=== PATIENT | female | born 1970 | race Caucasian/White ===

== ENCOUNTER 2018-02-07 07:08 | Emergency (ER) | payer BC ==
[2018-02-07] MEDS ORDERED: diPHENhydraMINE IV* 50 MG/ML 1 ml VIAL (BENADRYL) IV ONE (07:29)
[2018-02-07] MEDS ORDERED: Metoclopramide IV* 5 MG/ML 2 ML VIAL IV ONE (07:29)
[2018-02-07] MEDS ORDERED: Ketorolac INJ* 30 MG/ML 1 ML VIAL IV ONE (07:29)
[2018-02-07] MEDS ORDERED: NS 0.9% 1000 ML* 1,000 ML IV ONE (07:29)
--- NOTE | 2018-02-07 07:36 | ED ---
Headache - HPI Summary HPI Summary: Patient is a 47 y/o female who presents to the ED c/o headache. She states the headache began 4 days ago in the left side of the back of her neck. Patient states it initially felt like she just had a stiff neck, but the headache continued to worsen. Now she reports the headache mainly behind her eyes, and her neck is still stiff. She denies any bad sleeping positions or recent new pillows. She reports never usually getting headaches, but notes a similar headache when she sudden quit caffeine a few years ago. Patient woke up at 3 AM this morning due to pain, and began vomiting. She rates the headache as 10/10 in severity. She denies any fever, photophobia, or nuchal rigidity. Patient had 5 teeth pulled 2 months ago and had a dental abscess. - History Of Current Complaint Chief Complaint: EDHeadache Stated Complaint: HEADACHE/VOMITING Hx Obtained From: Patient Hx Last Menstrual Period: 2.5 weeks ago Onset/Duration: Gradual Onset, Started days ago - 4, Worse Since Currently Pain Is: Severe - 10/10 Timing: Constant Location of Headache: Other: - Back of left neck, moved to behind eyes Aggravating Factor: Nothing Allevating Factors: Nothing Associated Signs And Symptoms: Nausea, Vomiting, Neck Stiffness, Other (Noted In Comments) - NEGATIVE: fever, photophobia, nuchal rigidity Related History: Similar Episode/DX As: - Caffeine withdrawal headache - Allergies/Home Medications Allergies/Adverse Reactions: Allergies Allergy/AdvReac Type Severity Reaction Status Date / Time amoxicillin Allergy Hives Verified 02/07/18 10:14 doxycycline Allergy See Comment Verified 02/07/18 10:14 oxycodone Allergy Vomiting Verified 02/07/18 07:46 Penicillins Allergy Hives Verified 02/07/18 07:46 Home Medications: Home Medications ALPRAZolam TAB* [Xanax TAB*] 0.125 mg PO DAILY PRN 02/07/18 [History Confirmed 02/07/18] Dextroamphetamine (NF) TAB [Dexedrine TAB*] 20 mg PO DAILY 02/07/18 [History Confirmed 02/07/18] Methylphenidate TAB* [Ritalin TAB*] 20 mg PO DAILY 02/07/18 [History Confirmed 02/07/18] PMH/Surg Hx/FS Hx/Imm Hx Endocrine/Hematology History: Denies: Hx Diabetes, Hx Thyroid Disease Cardiovascular History: Denies: Hx Hypercholesterolemia, Hx Hypertension Respiratory History: Denies: Hx Asthma, Hx Chronic Obstructive Pulmonary Disease (COPD) GI History: Denies: Hx Ulcer Psychiatric History: Reports: Hx Panic Disorder - Cancer History Hx Chemotherapy: No - Surgical History Surgery Procedure, Year, and Place: Tonsils and Adenoids, open fracture repair Infectious Disease History: No Infectious Disease History: Reports: Hx Shingles - As a child Denies: Hx Hepatitis, Hx Human Immunodeficiency Virus (HIV), History Other Infectious Disease, Traveled Outside the [place] in Last 30 Days - Family History Known Family History: Negative: Hypertension, Diabetes - Social History Alcohol Use: Occasionally Hx Substance Use: No Substance Use Type: Reports: None Hx Tobacco Use: Yes Smoking Status (MU): Heavy Every Day Tobacco Smoker Type: Cigarettes Amount Used/How Often: 1 ppd Length of Time of Smoking/Using Tobacco: 25 years Have You Smoked in the Last Year: Yes Review of Systems Negative: Fever Negative: Photophobia Positive: Vomiting, Nausea Positive: Other - stiff neck, NEGATIVE: nuchal rigidity Positive: Headache All Other Systems Reviewed And Are Negative: Yes Physical Exam - Summary Physical Exam Summary: VITAL SIGNS: Reviewed. GENERAL: Patient is a well-developed and nourished FEMALE who is lying comfortable in the stretcher. Patient is not in any acute respiratory distress. HEAD AND FACE: No signs of trauma. No ecchymosis, hematomas or skull depressions. No sinus tenderness. EYES: PERRLA, EOMI x 2, No injected conjunctiva, no nystagmus. EARS: Hearing grossly intact. Ear canals and tympanic membranes are within normal limits. MOUTH: Oropharynx within normal limits. NECK: Supple, trachea is midline, no adenopathy, no JVD, no carotid bruit, no c- spine tenderness, neck with full ROM. CHEST: Symmetric, no tenderness at palpation LUNGS: Clear to auscultation bilaterally. No wheezing or crackles. CVS: Regular rate and rhythm, S1 and S2 present, no murmurs or gallops appreciated. ABDOMEN: Soft, non-tender. No signs of distention. No rebound no guarding, and no masses palpated. Bowel sounds are normal. EXTREMITIES: FROM in all major joints, no edema, no cyanosis or clubbing. NEURO: Alert and oriented x 3. No acute neurological deficits. Speech is normal and follows commands. SKIN: Dry and warm GCS: 15 Triage Information Reviewed: Yes Vital Signs On Initial Exam: Initial Vitals Temp Pulse Resp BP Pulse Ox 96.7 F 59 18 167/106 100 02/07/18 07:10 02/07/18 07:10 02/07/18 07:10 02/07/18 07:10 02/07/18 07:10 Vital Signs Reviewed: Yes Diagnostics - Vital Signs Vital Signs Temp Pulse Resp BP Pulse Ox 02/07/18 07:10 96.7 F 59 18 167/106 100 - Laboratory Result Diagrams: 02/07/18 07:52 02/07/18 07:52 Lab Statement: Any lab studies that have been ordered have been reviewed, and results considered in the medical decision making process. - Radiology Brain MRI Radiology Interpretation Completed By: Radiologist - 1. THERE ARE MULTIPLE NONENHANCING FOCI OF ELEVATED T2/FLAIR SIGNAL WITHIN THE PERIVENTRICULAR AND SUBCORTICAL WHITE MATTER. WHILE THESE FINDINGS ARE NONSPECIFIC, THEY CAN BE SEEN IN ASSOCIATION WITH MIGRAINE HEADACHE, THE SEQUELA OF PREVIOUS INFECTION OR INFLAMMATION, AND CHRONIC SMALL VESSEL ISCHEMIA. DEMYELINATING DISEASE IS ALSO WITHIN THE DIFFERENTIAL, BUT IS CONSIDERED LESS LIKELY IN THE ABSENCE OF THE APPROPRIATE CLINICAL PRESENTATION. 2. MODERATE SINUS MUCOSAL INFLAMMATORY DISEASE, WITHOUT AIR-FLUID LEVEL TO SUGGEST ACUTE SINUSITIS. ED physician reviewed radiology report. - CT Cervical Spine CT CT Interpretation: Positive (See Comments) - 1. STRAIGHTENING OF THE CERVICAL LORDOSIS. 2. DEGENERATIVE DISC DISEASE AND OSTEOARTHRITIS. 3. THERE IS MILD NARROWING OF CENTRAL CANAL AT C5-C6 AND C6-C7. 4. THERE IS MULTILEVEL NEUROFORAMINAL NARROWING DESCRIBED ABOVE. ED physician reviewed radiology report. CT Interpretation Completed By: Radiologist Brain CT CT Interpretation: No Acute Changes - 1. MILD HYPOATTENUATION OF THE SUBCORTICAL WHITE MATTER OF THE LEFT FRONTAL LOBE. WHILE THIS MAY REPRESENT CHRONIC SMALL VESSEL ISCHEMIC CHANGE, THE IMAGING APPEARANCE IS INDETERMINATE. CONSIDER FURTHER EVALUATION WITH PRE AND POSTCONTRAST ENHANCED MRI IN THE NONACUTE SETTING. 2. OTHERWISE, NO ACUTE INTRACRANIAL PATHOLOGY. ED physician reviewed radiology report. CT Interpretation Completed By: Radiologist - EKG 07:32 Cardiac Rate: Bradycardia - 52 bpm EKG Rhythm: Sinus Rhythm EKG Interpretation: No ST elevation, nl axis Headache Course/Dx - Course Assessment/Plan: This patient is a 47-year-old female who presents to the emergency department with a chief complaint of having a headache. Past medical history significant for anxiety. Physical exam reveals no C-spine tenderness, no photophobia, no meningeal signs. In the ED course the patient was given IV fluids, Reglan, Benadryl, Toradol. Head CT impression: 1. MILD HYPOATTENUATION OF THE SUBCORTICAL WHITE MATTER OF THE LEFT FRONTAL LOBE. WHILE THIS MAY REPRESENT CHRONIC SMALL VESSEL ISCHEMIC CHANGE, THE IMAGING APPEARANCE IS INDETERMINATE. CONSIDER FURTHER EVALUATION WITH PRE AND POSTCONTRAST ENHANCED MRI IN THE. NONACUTE SETTING. 2. OTHERWISE, NO ACUTE INTRACRANIAL PATHOLOGY. C spine CT IMPRESSION: 1. STRAIGHTENING OF THE CERVICAL LORDOSIS. 2. DEGENERATIVE DISC DISEASE AND OSTEOARTHRITIS. 3. THERE IS MILD NARROWING OF CENTRAL CANAL AT C5-C6 AND C6-C7. 4. THERE IS MULTILEVEL NEUROFORAMINAL NARROWING DESCRIBED ABOVE. At this time I discussed my physical exam, findings and test results with Dr. Verdugo from neurology and he recommends for the patient to get an MRI with and without contrast. At this point the patient is hemodynamically stable, the patient is feeling better, she reports that he has resolved and now she isn't symptomatic. Brain MRI IMPRESSION: 1. THERE ARE MULTIPLE NONENHANCING FOCI OF ELEVATED T2/FLAIR SIGNAL WITHIN THE PERIVENTRICULAR AND SUBCORTICAL WHITE MATTER. WHILE THESE FINDINGS ARE NONSPECIFIC, THEY CAN BE SEEN IN ASSOCIATION WITH MIGRAINE HEADACHE, THE SEQUELA OF PREVIOUS INFECTION OR. INFLAMMATION, AND CHRONIC SMALL VESSEL ISCHEMIA. DEMYELINATING DISEASE IS ALSO WITHIN THE DIFFERENTIAL, BUT IS CONSIDERED LESS LIKELY IN THE ABSENCE OF THE APPROPRIATE CLINICAL PRESENTATION. 2. MODERATE SINUS MUCOSAL INFLAMMATORY DISEASE, WITHOUT AIR-FLUID LEVEL TO SUGGEST ACUTE SINUSITIS. The patient continues to be asymptomatic. She reports that the headache has not come back. I discussed the MRI results with Dr. Verdugo from neurology and he recommends for the patient to be discharged home and follow-up at his office. At this point the patient is hemodynamically stable alert and oriented 3. Neurological exam before discharge is within normal limits. The patient doesn't have any acute neurological focal deficits. The patient is ambulating good good steady walk. She was given instructions to return to the emergency room she develops any other headache, dizziness, weakness or any other symptom. She understands and agrees. - Diagnoses Differential Diagnosis/HQI/PQRI: CVA, TIA, Epidural Hematoma, Subdural Hematoma , Migraine, Sinus Headache, Subarachnoid Hemorrhage, Tension Headache Provider Diagnoses: Headache - Physician Notifications Discussed Care Of Patient With: Luis Verdugo Time Discussed With Above Provider: 12:25 Instructed by Provider To: Other - Patient is safe to discharge home, and is to follow up with neurology Discharge - Sign-Out/Discharge Documenting (check all that apply): Patient Departure - Discharge - Discharge Plan Condition: Stable Disposition: HOME Patient Education Materials: Acute Headache (ED) Referrals: Sharron Cohen NP [Primary Care Provider] - 3 Days Luis Verdugo MD [Medical Doctor] - 3 Days Additional Instructions: FOLLOW UP WITH YOUR PRIMARY CARE PROVIDER WITHIN ONE WEEK FOR HIGH BLOOD PRESSURE NOTED TODAY. RETURN TO THE ED FOR ANY WORSENING OR NEW SYMPTOMS. Follow up with neurology. - Billing Disposition and Condition Condition: STABLE Disposition: Home - Attestation Statements Document Initiated by William: Yes Documenting Scribe: Diana Smiley Provider For Whom William is Documenting (Include Credential): Vince Hall MD Scribe Attestation: Diana Escoto scribed for Vince Hall MD on 02/09/18 at 0857. Scribe Documentation Reviewed: Yes Provider Attestation: The documentation as recorded by the Diana hanks accurately reflects the service I personally performed and the decisions made by , Vince Hall MD
[2018-02-07 08:00] LABS: ABS Basophils 0.1 10^3/ul (0-0.2); ABS Eosinophils 0.4 10^3/ul (0-0.6); ABS Lymphocytes 1.4 10^3/ul (1.0-4.8); ABS Monocytes 0.5 10^3/ul (0-0.8); ABS Neutrophils 7.2 10^3/ul (1.5-7.7); ABS Nucleated RBC 0 10^3/ul; Eosinophil % 3.9 % (0-6); Hematocrit 41 % (35-47); Hemoglobin 13.9 g/dl (12.0-16.0); Lymphocyte % 14.7 % (25-47); Mean Corpuscular HGB Conc 34 g/dl (31-36); Mean Corpuscular Hemoglobin 30 pg (27-31); Mean Corpuscular Volume 87 fL (80-97); Mean Platelet Volume 6.8 um3 (7.4-10.4); Nucleated Red Blood Cells % 0; Platelet Count 354 10^3/ul (150-450); Red Cell Distribution Width 14 % (10.5-15); White Blood Count 9.5 10^3/ul (3.5-10.8)
--- NOTE | 2018-02-07 08:14 | RAD ---
HISTORY: URRUTIA COMPARISONS: None TECHNIQUE: Multiple contiguous axial CT scans were obtained of the head without intravenous contrast. FINDINGS: HEMORRHAGE/INFARCT: There is no hemorrhage or acute infarct. MASSES/SHIFT: There is no mass or shift. EXTRA-AXIAL SPACES: There are no extra-axial fluid collections. SULCI AND VENTRICLES: The sulci and ventricles are normal in size and position for the patient's stated age. CEREBRUM: There is mild hypoattenuation of the subcortical white matter of the left frontal lobe BRAINSTEM: There are no focal parenchymal abnormalities. CEREBELLUM: There are no focal parenchymal abnormalities. VESSELS: The vessels are grossly normal. PARANASAL SINUSES: The paranasal sinuses are clear. ORBITS: The orbits are unremarkable. BONES AND SOFT TISSUE: No bone or soft tissue abnormalities are noted. OTHER: None IMPRESSION: 1. MILD HYPOATTENUATION OF THE SUBCORTICAL WHITE MATTER OF THE LEFT FRONTAL LOBE. WHILE THIS MAY REPRESENT CHRONIC SMALL VESSEL ISCHEMIC CHANGE, THE IMAGING APPEARANCE IS INDETERMINATE. CONSIDER FURTHER EVALUATION WITH PRE AND POSTCONTRAST ENHANCED MRI IN THE NONACUTE SETTING. 2. OTHERWISE, NO ACUTE INTRACRANIAL PATHOLOGY.
--- NOTE | 2018-02-07 08:16 | RAD ---
HISTORY: neck pain COMPARISONS: None TECHNIQUE: Multiple contiguous axial CT scans were obtained of the cervical spine without intravenous contrast, with coronal and sagittal multiplanar reformations. FINDINGS: BRAIN: The visualized brain is unremarkable CENTRAL CANAL: Evaluation of the central canal is limited on CT technique; however, there is no obvious canalicular mass or epidural hemorrhage. ALIGNMENT: There is straightening of the cervical lordosis. VERTEBRAL BODIES: There is multilevel anterolateral marginal osteophyte formation most pronounced at C5-C6 and C6-C7. JOINTS: There is uncovertebral osteoarthritis. 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 MUSCULATURE: Unremarkable INTERVERTEBRAL DISCS: There is diffuse loss of intervertebral disc height. AXIAL IMAGES: C2-C3: There is no osseous neural foraminal narrowing or central canal stenosis. C3-C4: There is right greater than left uncovertebral hypertrophy with severe right neural foraminal narrowing. There is no osseous central canal stenosis. C4-C5: There is right greater than left uncovertebral hypertrophy with moderate right neural foraminal narrowing. There is no osseous central canal stenosis. C5-C6: There is a broad-based disc osteophyte complex with bilateral uncovertebral hypertrophy. There is severe right and moderate left neural foraminal narrowing. There is mild narrowing of the central canal. C6-C7: There is a broad-based disc osteophyte complex with bilateral uncovertebral hypertrophy. There is moderate left and mild right neuroforaminal narrowing. There is mild narrowing of the central canal. C7-T1: There is no osseous neural foraminal narrowing or central canal stenosis. SOFT TISSUES: The visualized soft tissues of the neck are unremarkable. The prevertebral fat stripe is preserved. OTHER: None. IMPRESSION: 1. STRAIGHTENING OF THE CERVICAL LORDOSIS. 2. DEGENERATIVE DISC DISEASE AND OSTEOARTHRITIS. 3. THERE IS MILD NARROWING OF CENTRAL CANAL AT C5-C6 AND C6-C7. 4. THERE IS MULTILEVEL NEUROFORAMINAL NARROWING DESCRIBED ABOVE.
[2018-02-07] MEDS ORDERED: Gadoteridol* (CONTRAST) 279.3 MG/ML 10 ML IV ONE ×2 (10:45→12:10)
--- NOTE | 2018-02-07 12:23 | RAD ---
HISTORY: Headache COMPARISONS: None TECHNIQUE: The following sequences were obtained of the head: Sagittal T1-weighted images, axial T2-weighted images, axial FLAIR images, axial susceptibility weighted images, axial T1-weighted images. Additionally, axial diffusion-weighted images were obtained with calculated apparent diffusion coefficients. Additionally, sagittal, coronal, and axial T1-weighted images were obtained after contrast enhancement with a gadolinium-based intravenous contrast agent. FINDINGS: HEMORRHAGE/INFARCT: There is no hemorrhage or acute infarct. MASSES/SHIFT: There is no mass or shift. EXTRA-AXIAL SPACES/MENINGES: There are no extra-axial fluid collections. SULCI AND VENTRICLES: The sulci and ventricles are normal in size and position for the patient's stated age. CEREBRUM: There are multiple scattered small foci of elevated T2/FLAIR signal within the periventricular and subcortical white matter. These do not enhance. This includes an area of abnormal attenuation on the previous CT scan. BRAINSTEM: There are no focal parenchymal abnormalities. CEREBELLUM: There are no focal parenchymal abnormalities. The cerebellar tonsils are normal in size and position. SELLA: The sella is normal. PINEAL: The pineal region is clear. CP ANGLE/TEMPORAL BONES: The labyrinthine structures are grossly normal. VESSELS: Normal flow-voids are noted within the visualized vertebral vasculature. DIFFUSION ABNORMALITIES: There are no diffusion abnormalities. PARANASAL SINUSES/MASTOIDS: There is mucosal thickening of ethmoid air cells, sphenoid sinus, left maxillary sinus, and frontal sinus. ORBITS: The orbits are unremarkable. BONES AND SOFT TISSUE: No bone or soft tissue abnormalities are noted. OTHER: There is no abnormal enhancement. IMPRESSION: 1. THERE ARE MULTIPLE NONENHANCING FOCI OF ELEVATED T2/FLAIR SIGNAL WITHIN THE PERIVENTRICULAR AND SUBCORTICAL WHITE MATTER. WHILE THESE FINDINGS ARE NONSPECIFIC, THEY CAN BE SEEN IN ASSOCIATION WITH MIGRAINE HEADACHE, THE SEQUELA OF PREVIOUS INFECTION OR INFLAMMATION, AND CHRONIC SMALL VESSEL ISCHEMIA. DEMYELINATING DISEASE IS ALSO WITHIN THE DIFFERENTIAL, BUT IS CONSIDERED LESS LIKELY IN THE ABSENCE OF THE APPROPRIATE CLINICAL PRESENTATION. 2. MODERATE SINUS MUCOSAL INFLAMMATORY DISEASE, WITHOUT AIR-FLUID LEVEL TO SUGGEST ACUTE SINUSITIS.
[2018-02-07 13:36] VITALS: BP 152/99
== END 2018-02-07 13:34 | disposition home or self-care (01) ==
LOC: ED 07:08
DX: R51 Headache (principal); R11.2 Nausea with vomiting, unspecified; Z88.0 Allergy status to penicillin; F17.210 Nicotine dependence, cigarettes, uncomplicated
CPT/HCPCS: 36415; 70450; 70553; 72125; 80053; 82375; 83605; 85025; 85652; 93005; 96374; 96375; 99282; A9579; J1200; J1885; J2765